=== PATIENT | male | born 1950 ===

== ENCOUNTER → 2023-09-07 08:36 | Outpatient (BNVA) | payer MEDICARE, SELFPAY | PROVIDERS: PCP Family Medicine; Referring Provider Family Medicine; Visit Provider Podiatrist | DX: M25.572 Pain in left ankle and joints of left foot (principal); M67.01 Short Achilles tendon (acquired), right ankle; M67.02 Short Achilles tendon (acquired), left ankle; M77.41 Metatarsalgia, right foot; M77.42 Metatarsalgia, left foot; M19.071 Primary osteoarthritis, right ankle and foot; M19.072 Primary osteoarthritis, left ankle and foot | CPT/HCPCS: 99203 ==

== ENCOUNTER → 2023-09-07 09:55 | Outpatient (CLI) | payer MEDICARE, SELFPAY ==
--- NOTE | 2023-09-07 09:15 | DI.RAD_ITS ---
Exam(s) XR FOOT LT COMPLETE EXAM: XR FOOT LT COMPLETE CLINICAL HISTORY: PAIN IN LT ANKLE AND JOINTS OF LT FOOT-M25.572. TECHNIQUE: 2D digital imaging was performed of the left foot. Three images were obtained. AP, obli que and lateral views were obtained. COMPARISON: No exams were available for comparison FINDINGS: BONES: No acute fracture is present. No bony destructive lesion is seen. JOINTS: No dislocation present. Mild degenerative changes seen in the interphalangeal joints of the t oes. SOFT TISSUE: Vascular calcifications are present. IMPRESSION: Mild degenerative changes of the foot. DATA REPOSITORY: RADIATION DOSE DELIVERED:
--- NOTE | 2023-09-07 09:15 | DI.RAD_ITS ---
Exam(s) XR FOOT RT COMPLETE EXAM: XR FOOT RT COMPLETE CLINICAL HISTORY: PAIN IN RT FOOT-[id number]. TECHNIQUE: 2D digital imaging was performed of the right foot. Three images were obtained. AP, obl ique and lateral views were obtained. COMPARISON: No exams were available for comparison FINDINGS: BONES: No acute fracture is present. No bony destructive lesion is seen. There is a small enthesophyt e at the posterior calcaneus. JOINTS: No dislocation present. Joint spaces are well maintained. SOFT TISSUE: Vascular calcifications are present. IMPRESSION: No acute abnormality. Chronic findings as described above. DATA REPOSITORY: RADIATION DOSE DELIVERED:
== END ==
PROVIDERS: PCP Family Medicine; Visit Provider Podiatrist
DX: M79.671 Pain in right foot (principal); M25.572 Pain in left ankle and joints of left foot
CPT/HCPCS: 99203; 73630

== ENCOUNTER → 2023-10-18 14:12 | Outpatient (BNVA) | payer MEDICARE, SELFPAY | PROVIDERS: PCP Family Medicine; Visit Provider Podiatrist | DX: M25.572 Pain in left ankle and joints of left foot (principal); M67.01 Short Achilles tendon (acquired), right ankle; M67.02 Short Achilles tendon (acquired), left ankle; M77.41 Metatarsalgia, right foot; M77.42 Metatarsalgia, left foot; M19.071 Primary osteoarthritis, right ankle and foot; M19.072 Primary osteoarthritis, left ankle and foot | CPT/HCPCS: 99214 ==